=== PATIENT | female | born 1990 | race American Indian/Alaskan Native ===

== ENCOUNTER 2016-08-28 00:44 | Inpatient (IN) | payer MEDICAID, OTHER ==
[2016-08-28] MEDS ORDERED: Lidocaine 1% 30 ML SDV INJECT PRN (01:11)
[2016-08-28] MEDS ORDERED: Acetaminophen 325 MG Tab PO PRN (01:11)
[2016-08-28] MEDS ORDERED: Lactated Ringers 500 ML IV ONE (01:11)
[2016-08-28] MEDS ORDERED: Misoprostol 400 MCG (4 X 100 MCG TAB) RECTAL PRN (01:11)
[2016-08-28] MEDS ORDERED: Ondansetron 4 MG/2 ML SDV IV PRN (01:11)
[2016-08-28] MEDS ORDERED: Sodium Chloride 0.9% 10 ML Syringe FLUSH PRN (01:11)
[2016-08-28] MEDS ORDERED: Methylergonovine 0.2 MG/1 ML Amp IM PRN (01:11)
[2016-08-28] MEDS ORDERED: Carboprost Tromethamine 250 MCG/1 ML Amp IM PRN (01:11)
[2016-08-28] MEDS ORDERED: Clindamycin Phosphate 900 MG in Sodium Chloride 0.9% 100 ML IV SCH ×2 (01:51→06:00)
[2016-08-28] MEDS ORDERED: Oxytocin/Normal Saline 30 UNIT/500 ML BAG IV SCH (02:00)
[2016-08-28] MEDS: Lactated Ringers 1,000 ML IV SCH ×2 (02:01→03:06)
[2016-08-28] MEDS ORDERED: fentaNYL 100 MCG/2 ML SDV ONE (02:21)
[2016-08-28] MEDS: Clindamycin Phosphate 900 MG in Sodium Chloride 0.9% 100 ML IV SCH ×2 (02:22→06:05)
--- NOTE | 2016-08-28 02:49 | PCM.PRNOTE ---
- Free Text/Narrative Note: Patient ID'd in sitting position L3-4 inner space identified, Sterile prep with Betadine and draped, Skin wheel with 1% lidocaine. 24 G pencan spinal needle advanced into SA space via an 18 G introducer. No blood/parasthesia positive CSF, 6 mg hyperbaric Marcaine + 20 mcg sufentanyl + 30 mcg fentanyl + epinepherine wash + 1.3 ml Preservative free normal saline injected into SA space + swirl x 2. Immediate pain relief is experienced by patient, BP 109/60 , HR 81, SpO2 99 on RA, T 97.4 RR 14. Level T8 bilateral with 0 pain score reported by patient.
--- NOTE | 2016-08-28 02:54 | PCM.PREANE ---
Preanesthetic Assessment - Procedure Proposed Procedure: Term in Labor requesting spinal narcotic for labor pain - Anesthesia/Transfusion/Family Hx Anesthesia History: Prior Anesthesia Without Reaction Family History of Anesthesia Reaction: No Transfusion History: No Prior Transfusion(s) Intubation History: Unknown - Review of Systems General: No Symptoms Pulmonary: No Symptoms Cardiovascular: No Symptoms Gastrointestinal: No symptoms Neurological: No Symptoms Other: Reports: None - Physical Assessment NPO Status Date: 08/28/16 NPO Status Time: 01:00 Pulse: 80 O2 Sat by Pulse Oximetry: 99 Respiratory Rate: 16 Blood Pressure: 109/60 Temperature: 97.2 F Height: 1.63 m Weight: 57.153 kg ASA Class: 2 Mental Status: Alert & Oriented x3 Airway Class: Mallampati = 2 Dentition: Reports: Normal Dentition Thyro-Mental Finger Breadths: 3 Mouth Opening Finger Breadths: 3 ROM/Head Extension: Full Lungs: Clear to auscultation, Normal respiratory effort Cardiovascular: Regular Rate, Regular Rhythm - Lab Values: Laboratory Last Values WBC 8.4 10^3/uL (5.0-10.0) 08/28/16 01:15 RBC 3.66 10^6/uL (4.2-5.4) L 08/28/16 01:15 Hgb 8.4 g/dL (12.0-16.0) L 08/28/16 01:15 Hct 27.2 % (37.0-47.0) L 08/28/16 01:15 MCV 74.3 fL (80-100) L 08/28/16 01:15 MCH 23.0 pg (27.0-34.0) L 08/28/16 01:15 MCHC 30.9 g/dL (33.0-35.0) L 08/28/16 01:15 Plt Count 282 10^3/uL (150-450) 08/28/16 01:15 Urine Opiates Screen Negative (NEGATIVE) 08/28/16 02:00 Ur Oxycodone Screen Negative (NEGATIVE) 08/28/16 02:00 Urine Methadone Screen Negative (NEGATIVE) 08/28/16 02:00 Ur Barbiturates Screen Negative (NEGATIVE) 08/28/16 02:00 U Tricyclic Antidepress Negative (NEGATIVE) 08/28/16 02:00 Ur Phencyclidine Scrn Negative (NEGATIVE) 08/28/16 02:00 Ur Amphetamine Screen Negative (NEGATIVE) 08/28/16 02:00 U Methamphetamines Scrn Positive (NEGATIVE) H 08/28/16 02:00 Urine MDMA Screen Negative (NEGATIVE) 08/28/16 02:00 U Benzodiazepines Scrn Negative (NEGATIVE) 08/28/16 02:00 Urine Cocaine Screen Negative (NEGATIVE) 08/28/16 02:00 U Marijuana (THC) Screen Negative (NEGATIVE) 08/28/16 02:00 - Allergies Allergies/Adverse Reactions: Allergies Allergy/AdvReac Type Severity Reaction Status Date / Time cephalexin [Cephalexin] Allergy Rash Verified 12/13/14 23:16 erythromycin ethylsuccinate Allergy Rash Verified 12/13/14 23:16 [From Pediazole] Penicillins Allergy Rash Verified 12/13/14 23:16 sulfisoxazole acetyl Allergy Rash Verified 12/13/14 23:16 [From Pediazole] - Blood Blood Available: No Product(s) Available: None - Anesthesia Plan Pre-Op Medication Ordered: None - Acknowledgements Anesthesia Type Planned: Spinal Pt an Appropriate Candidate for the Planned Anesthesia: Yes Alternatives and Risks of Anesthesia Discussed w Pt/Guardian: Yes Pt/Guardian Understands and Agrees with Anesthesia Plan: Yes Additional Comments: Patient ID's chart reviewed. R/B of intrathecal narcotic is discussed with patient and accepted. Consent is signed. PreAnesthesia Questionnaire - Past Health History Medical/Surgical History: Denies Medical/Surgical History [employer] P[employer] History: Reports: , Other (See Below) Other OB/BYN History: abnormal pap smear Neurological History: Reports: Migraines Hematologic History: Reports: Anemia - Infectious Disease History Infectious Disease History: Reports: Hepatitis C - SUBSTANCE USE Smoking Status *Q: Never Smoker Second Hand Smoke Exposure: No Days Per Week of Alcohol Use: 0 Recreational Drug Use History: No Recreational Drug Type: Reports: Methamphetamine, Other (see below) Other Recreational Drug Type: positive drug screen Recreational Drug Last Use: denies - HOME MEDS Home Medications: Home Meds Clindamycin HCl 150 mg PO TID 12/13/14 [History] - CURRENT (IN HOUSE) MEDS Current Meds: Current Medications Acetaminophen (Tylenol) 650 mg PO Q4H PRN PRN Reason: Pain (Mild 1-3) and fever Carboprost Tromethamine (Hemabate Ds) 250 mcg IM ASDIRECTED PRN PRN Reason: HEMORRHAGE Lactated Ringer's (Ringers, Lactated) 1,000 mls @ 125 mls/hr IV ASDIRECTED DIVYA Last Admin: 08/28/16 02:01 Dose: 125 mls/hr Oxytocin/Sodium Chloride (Pitocin In Ns 30 Unit/500 Ml) 30 unit in 500 mls @ 500 mls/hr IV TITRATE DIVYA; 500 MUNITS/MIN PRN Reason: Protocol Clindamycin Phosphate 900 mg/ (Sodium Chloride) 106 mls @ 200 mls/hr IV Q8HR DIVYA Last Admin: 08/28/16 02:22 Dose: 200 mls/hr Lidocaine HCl (Xylocaine-Mpf 1%) 10 ml INJECT ASDIRECTED PRN PRN Reason: Perineal Repair Methylergonovine Maleate (Methergine) 0.2 mg IM ASDIRECTED PRN PRN Reason: Hemorrhage Misoprostol (Cytotec) 800 mcg RECTAL ASDIRECTED PRN PRN Reason: Hemorrhage Ondansetron HCl (Zofran) 4 mg IV Q4H PRN PRN Reason: Nausea/Vomiting Last Admin: 08/28/16 02:14 Dose: 4 mg Sodium Chloride (Saline Flush) 10 ml FLUSH ASDIRECTED PRN PRN Reason: Keep Vein Open Discontinued Medications Fentanyl (Sublimaze) Confirm Administered Dose 100 mcg .ROUTE .STK-MED ONE Stop: 08/28/16 02:22 Lactated Ringer's (Ringers, Lactated) 500 mls @ 999 mls/hr IV .BOLUS ONE Stop: 08/28/16 01:41 Last Admin: 08/28/16 00:45 Dose: 999 mls/hr Clindamycin Phosphate 900 mg/ (Sodium Chloride) 106 mls @ 200 mls/hr IV Q8HR DIVYA Clindamycin Phosphate 900 mg/ (Sodium Chloride) 106 mls @ 200 mls/hr IV Q8HR [facility] Sufentanil Citrate (Sufenta) Confirm Administered Dose 50 mcg .ROUTE .STK-MED ONE Stop: 08/28/16 02:23
--- NOTE | 2016-08-28 03:00 | HP ---
CHIEF COMPLAINT: Increased force and frequency of contractions. HISTORY OF PRESENT ILLNESS: A 26-year-old, 5, para 4-0-0-4, currently at 35 and 4/7 weeks for intrauterine based on 25 week and 3-day ultrasound performed at her first visit. The patient reports contractions started at 12:30 this morning just prior to arrival and reports that this feels different with any of her other pregnancies, feeling the pressure to have a bowel movement or start pushing, so we have called an ambulance to bring her in. Denies any leakage of fluid or vaginal bleeding. movements have been good. Concerned about risk of delivery and complications for the baby. No headaches, chest pain, shortness of breath, right upper quadrant pain, headaches, or blurry vision. No new change in her swelling. No other acute concerns reported. OBSTETRICAL HISTORY: 1. 06/12/2009 at 37 weeks, delivered a female via vacuum-assisted vaginal delivery due to heart rate decelerations, female, weight 3289 g, delivered by Dr. Freeman. 2. 06/07/2011 at 38 weeks and 3 days gestation, male infant, delivered via spontaneous vaginal delivery. weight 3884 g after 6 hours of labor, named Ricci, delivered by Dr. Freeman. 3. 04/20/2012, at 40 weeks and 0 days' gestation, female , delivered via spontaneous vaginal delivery, weighing 3430 g, name Lexi. 4. 10/14/2013, 37 weeks 2 days gestation, male via spontaneous vaginal delivery, weighing 2892 g, reported to have had dysfunctional labor, Apgars were 8 and 9. No anesthesia was used and delivered by Dr. Perez. The patient reports that all of her deliveries have been uncomplicated vaginal deliveries usually laboring for about 6 hours and delivery with only 30 minutes or less of pushing. Denies any significant complications with any of her priors. This , expecting a baby boy, blood type is O positive. Antibody screen negative. She is rubella immune. Syphilis serology was nonreactive. Hepatitis B nonreactive. HIV negative. Gonorrhea negative. Chlamydia positive on 06/18/2016 and treated, but test of cure not performed. TSH normal 1.28. Hepatitis C was reactive and a quantitative HCV was 52,800 on 07/09/2016. No genotyping was done. Wet prep was positive for clue cells. She verbally reports that her Pap smear was negative. Most recent clinic hemoglobin was 9.6 in the middle of June. Glucose tolerance test result was 99. Reports only medications are Zithromax, vitamins, and iron. The patient reports this is a planned , but is uncertain about her dates because of her irregular periods, presented when she thought she was only 11 weeks' , but 1st ultrasound showed her to be 25 weeks' gestation and fundal height at that time was 28 cm. PAST MEDICAL HISTORY: 1. Prior abnormal Pap smear in 2010 with positive HPV, most recent Pap smear negative. 2. Migraine headaches. 3. Anemia of , recurrent. 4. Chickenpox as a child. 5. Menarche at age 16 with irregular cycles every 30 days to 60 days in about 5 days of flow. 6. Tattoos and ear piercings. Denies any history of any IV drug use or blood transfusions. PAST SURGICAL HISTORY: None. FAMILY HISTORY: Mother is living. She has a history of ruptured brain aneurysm and thyroid disease. Father is living with a history of diabetes and hypertension. The patient denies any medical problems with any of her siblings or grandparents. There is specifically a negative family history for defects, multiples, cystic fibrosis, seizures, bleeding or clotting disorders, or severe anesthesia reactions. SOCIAL HISTORY: She is living in [place] with her mother and brother as well as her 4 children, all of whom she has custody of. They do not have any pets. She denies any use of tobacco, alcohol, or drugs. She is not working. Father of this baby, she does not wish to name as he is not involved and will not be supporting her in labor. She reports that he is healthy. ALLERGIES: Pediazole, which is a combination of erythromycin and sulfisoxazole. Also penicillin and cephalexin. The patient denies known allergies to clindamycin or vancomycin. MEDICATIONS: 1. Iron 325 mg twice daily. 2. vitamin once daily. REVIEW OF SYSTEMS: As per the history of present illness. Denies any nausea, vomiting, diarrhea, constipation, fever, chills, skin rash, or new neurological or musculoskeletal complaints. PHYSICAL EXAMINATION: Vital Signs: Blood pressure 94/49, pulse of 90, temperature is 99.9, and her respiratory rate of 18. HEENT: Head is normocephalic and atraumatic. Ears, eyes, and nose all unremarkable. Mouth; mucous membranes are moist. Teeth are in poor hygiene with thick calculus buildup. Neck: Supple without adenopathy. HEART: Regular without obvious murmur. Lungs: Clear to auscultation bilaterally. Abdomen: Gravid, soft, nontender. [place] shows tracing heart tones at 155 beats per minute, at baseline moderate [id number] variability with accelerations noted. [place] shows tracing contractions every 2 to 5 minutes, somewhat irregular, sometimes with coupling. Cervix: Initial exam per nurse; 5 cm, 80%, and -1. My repeat exam about an hour later is 5 to 6 cm, 100% effaced, and 0 station with bulging bag of water intact. Extremities: No edema, erythema, or tenderness noted. ASSESSMENT: 1. A 35 and 4/7th weeks gestation based on a 25-week ultrasound. 2. 5, para 4-0-0-4. 3. Late care. 4. Anemia of . 5. Second trimester chlamydia, still needs test of cure. 6. Blood type O positive. 7. Rubella immune. 8. Group B strep status unknown, collected on admission. 9. History of hepatitis C positive with a low quantitative value in the middle of June. No genotyping is known. PLAN: The patient has been admitted to the hospital with anticipation of vaginal delivery in the next few hours. She can have an intrathecal when appropriate and anticipate proceeding with artificial rupture of membranes if she does not spontaneously rupture. We would like to have her clindamycin on board prior to that. Counseled the patient about potential for complications with delivery requiring the baby to be transferred to the Intensive Care nursery. Discussed with her obtaining a urine sample for retest of gonorrhea and chlamydia because the hospital does not have any vaginal swabs for that testing available, also that I will be adding a genotype and quantitative HCV to her labs when they were drawn in the morning. Also risk of bleeding difficulties requiring transfusion because of her already low hemoglobin. Educated about low risk of vertical transmission of the HCV to the baby and the need for the baby to be tested at 18 months of age. The patient's questions have been answered. [facility] /[id number] [facility]
[2016-08-28] MEDS ORDERED: Simethicone 80 MG Tab.Chew PO PRN (04:47)
[2016-08-28] MEDS ORDERED: Benzocaine/Menthol 20%-0.5% Spray 56 GM Canister TOP PRN (04:47)
[2016-08-28] MEDS: Docusate Sodium 100 MG Cap PO PRN ×2 (05:50→22:02)
[2016-08-28] MEDS: Ibuprofen 800 MG Tab PO PRN ×2 (05:50→22:02)
[2016-08-28] MEDS: Ferrous Sulfate 325 MG Tab PO SCH ×2 (09:17→22:02)
[2016-08-28] MEDS: Prenatal Multivitamin with Calcium/Folic Acid/Iron Tab PO SCH (09:17)
--- NOTE | 2016-08-28 13:33 | PCM.POSTAN ---
POST ANESTHESIA ASSESSMENT - MENTAL STATUS Mental Status: alert, oriented - VITAL SIGNS Pulse Rate: 82 SaO2: 100 Resp Rate: 14 Blood Pressure: 112/46 Temperature: 97.2 F - RESPIRATORY Respiratory Status: respiratory rate WNL, airway patent, O2 saturation stable - CARDIOVASCULAR CV Status: pulse rate WNL, blood pressure stable - GASTROINTESTINAL GI Status: no symptoms - POST OP HYDRATION Hydration Status: adequate & stable - OBSERVATIONS Free Text/Narrative:: Patient is sitting in bed regained full function of her lower extremities and ambulated without any issue. Happy with her anesthetic plan of care.
[2016-08-29] MEDS: Docusate Sodium 100 MG Cap PO PRN ×2 (08:27→19:28)
[2016-08-29] MEDS: Ferrous Sulfate 325 MG Tab PO SCH ×2 (08:27→20:18)
[2016-08-29] MEDS: Prenatal Multivitamin with Calcium/Folic Acid/Iron Tab PO SCH (08:27)
[2016-08-29] MEDS: Ibuprofen 800 MG Tab PO PRN ×2 (08:27→19:29)
--- NOTE | 2016-08-29 08:37 | PN ---
DATE: 08/29/2016 SUBJECTIVE: Postvaginal delivery day #1, doing well. She is ambulating, tolerating regular diet. Reports bleeding has been minimal. No chest pain or shortness of breath. No dysuria. Has not yet had a bowel movement. Bottle feeding her baby. She denies any other concerns for herself. OBJECTIVE: Vital Signs: Temperature is 98.4, pulse 75, blood pressure 102/43, respiratory rate of 18, and O2 saturations 96% on room air. Heart: Regular without obvious murmur. Lungs: Clear to auscultation bilaterally. Abdomen: Soft without masses. Fundus is firm and below the umbilicus. Extremities: No edema, erythema, or tenderness noted. LABORATORY DATA: Hemoglobin is down to 8.1 from a prior 8.4. White blood cell count is stable at 8.4. ASSESSMENT: 1. Status post vaginal delivery without complications. 2. Late care. 3. Group B streptococcus status was unknown. 4. Rh status is positive. 5. Methamphetamine positive on urine drug screen. Confirmatory testing is pending. 6. Hepatitis C carrier. 7. Anemia of . 8. Dental caries. PLAN: Anticipate continued normal care and anticipate discharge home if baby is doing well. No other problems are elicited. [facility] /[id number]
[2016-08-29] MEDS ORDERED: fentaNYL 100 MCG/2 ML SDV ITHECAL ONE (14:41)
[2016-08-30 08:14] VITALS: BP 105/49
[2016-08-30] MEDS: Ferrous Sulfate 325 MG Tab PO SCH (09:24)
[2016-08-30] MEDS: Ibuprofen 800 MG Tab PO PRN (09:24)
[2016-08-30] MEDS: Docusate Sodium 100 MG Cap PO PRN (09:24)
[2016-08-30] MEDS: Prenatal Multivitamin with Calcium/Folic Acid/Iron Tab PO SCH (09:24)
--- NOTE | 2016-09-13 08:31 | DEL ---
DATE: 08/28/2016 PREPROCEDURE DIAGNOSES: 1. 5, para 4-0-0-4, at 35-4/7 weeks' gestation based on 25-week ultrasound. 2. Late and insufficient care. 3. Anemia of . 4. History of Chlamydia treated in the second trimester. 5. Hepatitis C positive. 6. Methamphetamine on urine drug screen at time of admission. 7. History of marijuana use. 8. Group B Streptococcus status unknown, blood type O positive, and rubella immune. POSTPROCEDURE DIAGNOSES: 1. 5, para 4-1-0-5, delivered at 35-4/7 weeks' gestation based on 25- week ultrasound. 2. Late and insufficient care. 3. Anemia of . 4. History of Chlamydia treated in the second trimester. 5. Hepatitis C positive. 6. Methamphetamine on urine drug screen at time of admission. 7. History of marijuana use. 8. Group B Streptococcus status unknown, blood type O positive, and rubella immune. 9. Status post spontaneous vaginal delivery under intrathecal anesthesia. BRIEF HISTORY: The patient is a 26-year-old female with the above-listed diagnoses, who presented to the hospital in active spontaneous labor which was progressing too rapidly for transfer of care to another facility. Bag of water was left intact while she was laboring and intrathecal provided for anesthesia. She was also given antibiotics for group B strep prophylaxis since her status was unknown. Amniotic fluid sac ruptured spontaneously about 10 minutes prior to delivery and delivery itself was uncomplicated. PROCEDURE DETAIL: With the patient in dorsal lithotomy position, she delivered a viable male infant over intact perineum. Infant was dried and mouth and nose were bulb suctioned due to excessive secretions and then baby held while delayed cord clamping was awaited and three-vessel umbilical cord was then doubly clamped and cut and baby taken to the warmer for further evaluation and was doing well. Placenta then delivered by gentle cord traction and concomitant uterine massage and intact. Labia and vagina were inspected and she had some superficial skin tears, but nothing that required stitches. Estimated 4 hours of stage I, 1 minute of stage II, and 4 minutes of stage III. ESTIMATED BLOOD LOSS: 300 mL. COMPLICATIONS: None. DISPOSITION: Mother and baby to stay in the room and initiate bonding at this time. He will be taken to the nursery if any concerns arise. FINDINGS: Suspect methamphetamine was cause of labor. [facility] /[id number] [facility]D
--- NOTE | 2016-09-14 00:25 | DISCH ---
ADMITTING DIAGNOSES: 1. Active labor at 35-4/7th weeks' gestation based on 25-week ultrasound. 2. 5, para 4-0-0-4. 3. Late care. 4. Anemia of . 5. Chlamydia treated in the second trimester. [id number] not yet performed. 6. Blood type O positive, rubella immune, and group B Streptococcus status unknown. 7. Hepatitis C positive, genotype unknown. 8. Positive methamphetamine on urine drug screen at admission. 9. Admission of marijuana and methamphetamine use in the . See history and physical for full details. DISCHARGE DIAGNOSES: 1. Active labor at 35-4/7th weeks' gestation based on 25-week ultrasound. 2. 5, para 4-1-0-5. 3. Late care. 4. Anemia of . 5. Chlamydia treated in the second trimester. [id number] not yet performed. 6. Blood type O positive, rubella immune, and group B Streptococcus status unknown. 7. Hepatitis C positive, genotype unknown. 8. Positive methamphetamine on urine drug screen at admission. 9. Admission of marijuana and methamphetamine use in the . See history and physical for full details. 10.Status post spontaneous vaginal delivery of without complications. 11.Chlamydia present upon admission testing and treated after discharge from the hospital. BRIEF HISTORY: A 26-year-old female with above-listed diagnoses presented to the hospital with spontaneous labor and already 5 to 6 cm dilated. She was allowed to progress naturally through labor and provided an intrathecal for pain management. Bag of water was left intact, and antibiotics were provided for group B strep prophylaxis. Spontaneous rupture occurred about 10 minutes prior to delivery of the infant, and mother and baby tolerated the procedure well. HOSPITAL COURSE: She has done well. She has been ambulating and tolerating regular diet. Bleeding has been minimal. She is voiding without difficulties. She has not yet had a bowel movement. No symptoms of preeclampsia. No symptoms of any ongoing infection. The Chlamydia was retested here in the hospital and detected, therefore treated as soon as we received results. The was taken into custody by [employer], and mother has been involved with that process as well. Baby also required a prolonged stay because of difficulties with adequate weight gain during the hospital stay. DISPOSITION: Home with family. MEDICATIONS: 1. Ibuprofen 600 mg every 6 hours as needed for pain. 2. Tylenol 650 mg every 6 hours as needed for pain. 3. Iron 325 mg twice daily. 4. Colace 100 mg twice daily. FOLLOWUP: She will need a 6-week exam here in town or out at [place]. INSTRUCTIONS: Routine postvaginal delivery instructions provided including to return if she has any difficulties with excessive vaginal bleeding, foul- smelling drainage or discharge, or development of fever, chills, or any uterine tenderness. Her questions have been answered. [facility] /[id number] [facility]
== END 2016-08-30 11:24 | disposition home or self-care (01) | DRG 775 ==
LOC: DL.OBCHECK 00:44 → DL.OB 01:05 → OBSVTOIN 04:30 → EEVIPCON 04:30
PROVIDERS: ADMIT Family Medicine; ATTEND Family Medicine
PROC: 10E0XZZ Delivery of Products of Conception, External Approach (ICD-10-PCS; principal; 2016-08-28)
PROC: 00HU33Z Insertion of Infusion Device into Spinal Canal, Percutaneous Approach (ICD-10-PCS; 2016-08-28)
PROC: 3E0R3CZ (ICD-10-PCS; 2016-08-28)
DX: O60.14X0 Preterm labor third trimester with preterm delivery third trimester, not applicable or unspecified (principal); O99.324 Drug use complicating childbirth; Z3A.36 36 weeks gestation of pregnancy; Z37.0 Single live birth; B18.2 Chronic viral hepatitis C; O99.02 Anemia complicating childbirth; Z88.8 Allergy status to other drugs, medicaments and biological substances; Z88.0 Allergy status to penicillin; Z88.1 Allergy status to other antibiotic agents
CPT/HCPCS: 36415; 80305; 85027; 87081; 87491; 87522; 87591; A9270-GY; G0480; J2405; J2590; J3010; J7050; J7120; S0077

== ENCOUNTER 2017-03-11 16:06 | Emergency (ER) | payer MEDICAID, OTHER ==
[2017-03-11 16:26] VITALS: BP 103/59
--- NOTE | 2017-03-11 16:55 | EDM.PDOC ---
ED HPI GENERAL MEDICAL PROBLEM - General Chief Complaint: Genitourinary Problem Stated Complaint: pain in chest/lower back [phone] Time Seen by Provider: 03/11/17 16:35 Source of Information: Reports: Patient History Limitations: Reports: No Limitations - History of Present Illness INITIAL COMMENTS - FREE TEXT/NARRATIVE: This 26 yo female patient reports to the ED with lower back pain, burning with urination and a cough causing pain in her chest with coughing. The patient has not been seen in the clinic and does not have a history of similar symptoms in the past. Onset Date: 03/10/17 Duration: Constant, Getting Worse Location: Reports: Chest, Abdomen, Back Quality: Reports: Ache (lower back and chest with cough), Burning (with urination) Severity: Moderate Worsens with: Reports: None Associated Symptoms: Reports: Cough Bilateral Flank Pain Score (Numeric/FACES): 10 - Related Data Allergies Allergy/AdvReac Type Severity Reaction Status Date / Time cephalexin [Cephalexin] Allergy Rash Verified 03/11/17 16:12 erythromycin ethylsuccinate Allergy Rash Verified 03/11/17 16:12 [From Pediazole] Penicillins Allergy Rash Verified 03/11/17 16:12 sulfisoxazole acetyl Allergy Rash Verified 03/11/17 16:12 [From Pediazole] Home Meds: Home Meds . 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: , Other (See Below) Other OB/BYN History: abnormal pap smear Neurological History: Reports: Migraines Hematologic History: Reports: Anemia - Infectious Disease History Infectious Disease History: Reports: Hepatitis C Social & Family History - Family History Family Medical History: Noncontributory - Tobacco Use Smoking Status *Q: Never Smoker Years of Tobacco use: 1 Used Tobacco, but Quit: No Month Tobacco Last Used: 06 Second Hand Smoke Exposure: No - Caffeine Use Caffeine Use: Reports: Tea - Alcohol Use Days Per Week of Alcohol Use: 0 - Recreational Drug Use Recreational Drug Use: Yes Drug Use in Last 12 Months: Yes Recreational Drug Type: Reports: Methamphetamine, Other (see below) Other Recreational Drug Type: denies use Recreational Drug Last Use: denies ED ROS GENERAL - Review of Systems Review Of Systems: ROS reveals no pertinent complaints other than HPI. ED EXAM, RENAL/ - Physical Exam Exam: See Below Exam Limited By: No Limitations General Appearance: Alert, WD/WN, Moderate Distress Eye Exam: Bilateral Eye: EOMI, Normal Inspection, PERRL Ears: Normal External Exam, Normal Canal, Hearing Grossly Normal, Normal TMs Nose: Normal Inspection, Normal Mucosa, No Blood Throat/Mouth: Normal Inspection, Normal Lips, Normal Teeth, Normal Gums, Normal Oropharynx, Normal Voice, No Airway Compromise, Inflammation Neck: Normal Inspection, Supple, Non-Tender, Full Range of Motion Respiratory/Chest: No Respiratory Distress Cardiovascular: Normal Peripheral Pulses, Regular Rate, Rhythm, No Edema, No Gallop, No JVD, No Murmur, No Rub GI/Abdominal: Normal Bowel Sounds, Soft, Tender (lower abdomen) (Female) Exam: Deferred Rectal (Female) Exam: Deferred Back Exam: CVA Tenderness (L), CVA Tenderness (R) Extremities: Normal Inspection, Normal Range of Motion, Non-Tender, Normal Capillary Refill, No Pedal Edema Neurological: Alert, Oriented, CN II-XII Intact, Normal Cognition, Normal Gait, Normal Reflexes, No Motor/Sensory Deficits Psychiatric: Normal Affect, Normal Mood Skin Exam: Warm, Dry, Intact, Normal Color, No Rash Lymphatic: No Adenopathy Course - Vital Signs Last Recorded V/S: Last Vital Signs Temp 36.2 C 03/11/17 16:13 Pulse 104 H 03/11/17 16:13 Resp 18 03/11/17 16:13 BP 103/59 L 03/11/17 16:13 Pulse Ox 100 03/11/17 16:13 - Orders/Labs/Meds Orders: Active Orders 24 hr Category Date Time Status COMPREHENSIVE METABOLIC PN,CMP [CHEM] Urgent Lab 03/11/17 17:00 Received Labs: Laboratory Tests 03/11/17 03/11/17 Range/Units 16:16 17:00 WBC 6.7 (5.0-10.0) 10^3/uL RBC 5.22 (4.2-5.4) 10^6/uL Hgb 11.6 L D (12.0-16.0) g/dL Hct 36.7 L (37.0-47.0) % MCV 70.3 L D (80-100) fL MCH 22.2 L (27.0-34.0) pg MCHC 31.6 L (33.0-35.0) g/dL Plt Count 324 D (150-450) 10^3/uL Neut % (Auto) 69.2 (42.2-75.2) % Lymph % (Auto) 23.7 (20.5-50.1) % [place] % (Auto) 7.0 (2-8) % Eos % (Auto) 0.0 L (1.0-3.0) % Baso % (Auto) 0.1 (0.0-1.0) % Urine Color Red (YELLOW) Urine Appearance Turbid (CLEAR) Urine pH 6.0 (5.0-9.0) Ur Specific [place] >= 1.030 (1.005-1.030) Urine Protein 100 H (NEGATIVE) Urine Glucose (UA) Negative (NEGATIVE) Urine Ketones Trace H (NEGATIVE) Urine Occult Blood Large H (NEGATIVE) Urine Nitrite Negative (NEGATIVE) Urine Bilirubin Small H (NEGATIVE) Urine Urobilinogen 2.0 H (0.2-1.0) mg/dL Ur Leukocyte Esterase Trace H (NEGATIVE) Urine RBC >100 H /HPF Urine WBC 5-10 H (0-5/HPF) /HPF Ur Epithelial Cells Rare /HPF Urine Bacteria Rare (0-FEW/HPF) /HPF Urine Mucus Rare /LPF Departure - Departure Time of Disposition: 17:24 Disposition: Home, Self-Care 01 Condition: Fair Clinical Impression: UTI, Urinary tract infectious disease, Bronchitis - Discharge Information Instructions: Urinary Tract Infection, Adult, [id number], Acute Bronchitis, [id number] Forms: ED Department Discharge Care Plan Goals: The patient was advised of the examination and lab results during the visit. The patient was given a script for Levaquin (750 mg) to take 1 by mouth daily for 5 days and Pyridium (200 mg) #6 to take 1 by mouth 3 times per day for 2 days. If the patient has any additional symptoms or concerns, the patient should follow-up with her primary care facility or return to the emergency department. - My Orders Last 24 Hours: My Active Orders 03/11/17 17:00 COMPREHENSIVE METABOLIC PN,CMP [CHEM] Urgent - Assessment/Plan Last 24 Hours: My Active Orders 03/11/17 17:00 COMPREHENSIVE METABOLIC PN,CMP [CHEM] Urgent
[2017-03-11 17:33] LABS: CHLORIDE,CL 99 mmol/L (101-111); SODIUM,NA 136 mmol/L (135-145)
== END 2017-03-11 17:43 | disposition home or self-care (01) ==
LOC: DL.ED 16:06
DX: N39.0 Urinary tract infection, site not specified (principal); J40 Bronchitis, not specified as acute or chronic; Z88.0 Allergy status to penicillin; Z88.1 Allergy status to other antibiotic agents; Z88.8 Allergy status to other drugs, medicaments and biological substances
CPT/HCPCS: 36415; 80053; 81001; 85025; 99284

== ENCOUNTER 2017-11-06 16:02 | Emergency (ER) | payer MEDICAID ==
[2017-11-06 16:09] VITALS: BP 85/42
[2017-11-06] MEDS ORDERED: Sodium Chloride 0.9% 10 ML Syringe FLUSH PRN ×2 (16:14→17:38)
[2017-11-06] MEDS ORDERED: Acetaminophen 325 MG Tab PO ONE (16:15)
[2017-11-06] MEDS ORDERED: Ondansetron 4 MG/2 ML SDV IV ONE (16:15)
[2017-11-06] MEDS ORDERED: Sodium Chloride 0.9% 1,000 ML IV ONE ×2 (16:15→17:38)
[2017-11-06 16:54] LABS: CHLORIDE,CL 101 mmol/L (101-111); SODIUM,NA 136 mmol/L (135-145)
[2017-11-06] MEDS ORDERED: Clindamycin Phosphate 900 MG in Sodium Chloride 0.9% 100 ML IV ONE (17:37)
--- NOTE | 2017-11-06 17:49 | EDM.PDOC ---
Scribed by Ladi Hills 11/06/17 [id number] for García Rock MD ED HPI GENERAL MEDICAL PROBLEM - General Chief Complaint: General Stated Complaint: [phone] RIGHT SIDE PAIN Time Seen by Provider: 11/06/17 16:07 Source of Information: Reports: Patient, RN, RN Notes Reviewed History Limitations: Reports: No Limitations - History of Present Illness INITIAL COMMENTS - FREE TEXT/NARRATIVE: Patient presents to ER with complaint of being sick since last Saturday with right sided abdominal pain, fever, chills, nausea and a couple episodes of emesis. The pain is localized mostly to the right upper quadrant. Occasionally the pain radiates to the right flank and right mid back. Denies sore throat, cough, or urinary symptoms. Patient states she does not think she is . Last period was around September 13. Patient has history of methamphetamine use but states she has not used recently. Onset: Gradual Duration: Getting Worse Location: Reports: Abdomen Quality: Reports: Ache Severity: Severe Improves with: Reports: None Worsens with: Reports: None Associated Symptoms: Reports: No Other Symptoms Right Hand Pain Score (Numeric/FACES): 10 - Related Data Allergies Allergy/AdvReac Type Severity Reaction Status Date / Time cephalexin [Cephalexin] Allergy Rash Verified 03/11/17 16:12 erythromycin ethylsuccinate Allergy Rash Verified 03/11/17 16:12 [From Pediazole] Penicillins Allergy Rash Verified 03/11/17 16:12 sulfisoxazole acetyl Allergy Rash Verified 03/11/17 16:12 [From Pediazole] Home Meds: Home Meds . 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 History: abnormal pap smear Neurological History: Reports: Migraines Hematologic History: Reports: Anemia - Infectious Disease History Infectious Disease History: Reports: Hepatitis C Social & Family History - Family History Family Medical History: Noncontributory - Tobacco Use Smoking Status *Q: Current Some Day Smoker - Caffeine Use Caffeine Use: Reports: Tea - Alcohol Use Alcohol Use History: No - Recreational Drug Use Recreational Drug Use: Yes Recreational Drug Type: Reports: Methamphetamine Recreational Drug Use Frequency: Patient Refuses To Answer - Sexual History Sexual History: Reports: Sexually Active - Living Situation & Occupation Living situation: Reports: with Family ED ROS GENERAL - Review of Systems Review Of Systems: ROS reveals no pertinent complaints other than HPI. ED EXAM, GENERAL - Physical Exam Exam: See Below Exam Limited By: No Limitations General Appearance: Alert, Other (acutely ill appearing) Eye Exam: Bilateral Eye: Normal Inspection Ears: Normal External Exam, Normal Canal, Hearing Grossly Normal, Normal TMs Nose: Normal Inspection, Normal Mucosa, No Blood Throat/Mouth: Normal Lips, Normal Oropharynx, Normal Voice, No Airway Compromise , Other (very dry oral membranes) Head: Atraumatic, Normocephalic Neck: Normal Inspection, Supple, Non-Tender, Full Range of Motion, Other (no nuchal rigidity). No: Lymphadenopathy (L), Lymphadenopathy (R) Respiratory/Chest: No Respiratory Distress, Lungs Clear, No Accessory Muscle Use , Chest Non-Tender, Decreased Breath Sounds. No: Rales, Rhonchi, Wheezing Cardiovascular: Regular Rate, Rhythm, No Edema, Tachycardia GI/Abdominal: Normal Bowel Sounds, Soft, No Distention, No Abnormal Bruit, No Mass, Pelvis Stable, Tender (right upper quadrant), Other (no peritoneal signs) . No: Guarding, Rigid, Rebound (Female) Exam: Deferred Rectal (Female) Exam: Deferred Back Exam: Full Range of Motion, CVA Tenderness (R). No: CVA Tenderness (L) Extremities: Normal Inspection, Normal Range of Motion, Non-Tender, Normal Capillary Refill, No Pedal Edema Neurological: Alert, Oriented, CN II-XII Intact, Normal Cognition, Normal Gait, No Motor/Sensory Deficits Psychiatric: Anxious Skin Exam: Warm, Dry, Intact, Normal Color, No Rash Course - Vital Signs Last Recorded V/S: Last Vital Signs Temp 39.8 C H 11/06/17 17:19 Pulse 126 H 11/06/17 16:07 Resp 17 11/06/17 16:07 BP 85/42 L 11/06/17 16:07 Pulse Ox 96 11/06/17 16:07 - Orders/Labs/Meds Orders: Active Orders 24 hr Category Date Time Status Peripheral IV Care [RC] . DIRECTED Care 11/06/17 16:15 Active Peripheral IV Care [RC] . DIRECTED Care 11/06/17 17:38 Active CHLAMYDIA AND GONORRHEA BY TMA Routine Lab 11/06/17 16:15 Received CULTURE BLOOD [BC] Stat Lab 11/06/17 16:20 Received CULTURE BLOOD [BC] Stat Lab 11/06/17 16:25 Received CULTURE URINE [RM] Stat Lab 11/06/17 16:15 Received HCG QUANTITATIVE,SERUM [CHEM] Stat Lab 11/06/17 16:25 Received Clindamycin Phosphate [Cleocin] 900 mg Med 11/06/17 17:37 Active Sodium Chloride 0.9% [Normal Saline] 100 ml IV ONETIME Sodium Chloride 0.9% [Normal Saline] 1,000 ml Med 11/06/17 17:38 Active IV .BOLUS Sodium Chloride 0.9% [Saline Flush] Med 11/06/17 16:14 Active 10 ml FLUSH ASDIRECTED PRN Sodium Chloride 0.9% [Saline Flush] Med 11/06/17 17:38 Active 10 ml FLUSH ASDIRECTED PRN Blood Culture x2 Reflex Set [OM.PC] Stat Oth 11/06/17 16:14 Ordered Peripheral IV Insertion Adult [OM.PC] Stat Oth 11/06/17 16:14 Ordered Peripheral IV Insertion Adult [OM.PC] Stat Oth 11/06/17 17:38 Ordered Medication Orders Clindamycin Phosphate 900 mg/ (Sodium Chloride) 106 mls @ 200 mls/hr IV ONETIME ONE Stop: 11/06/17 18:08 Sodium Chloride (Normal Saline) 1,000 mls @ 999 mls/hr IV .BOLUS ONE Stop: 11/06/17 18:38 Sodium Chloride (Saline Flush) 10 ml FLUSH ASDIRECTED PRN PRN Reason: Keep Vein Open Last Admin: 11/06/17 16:31 Dose: 10 ml Sodium Chloride (Saline Flush) 10 ml FLUSH ASDIRECTED PRN PRN Reason: Keep Vein Open Labs: Laboratory Tests 11/06/17 11/06/17 11/06/17 Range/Units 16:15 16:25 16:25 WBC 18.9 H (5.0-10.0) 10^3/uL RBC 3.66 L (4.2-5.4) 10^6/uL Hgb 9.2 L D (12.0-16.0) g/dL Hct 28.7 L (37.0-47.0) % MCV 78.4 L D (80-100) fL MCH 25.1 L (27.0-34.0) pg MCHC 32.1 L (33.0-35.0) g/dL Plt Count 598 H D (150-450) 10^3/uL Neut % (Auto) 88.2 H (42.2-75.2) % Lymph % (Auto) 6.2 L (20.5-50.1) % [place] % (Auto) 5.1 (2-8) % Eos % (Auto) 0.4 L (1.0-3.0) % Baso % (Auto) 0.1 (0.0-1.0) % Add Manual Diff Yes Neutrophils % (Manual) 88 H (42-75) % Lymphocytes % (Manual) 7 L (20-50) % Monocytes % (Manual) 4 (2-8) % Eosinophils % (Manual) 1 (1-3) % Sodium 136 (135-145) mmol/L Potassium 4.0 (3.6-5.0) mmol/L Chloride 101 (101-111) mmol/L Carbon Dioxide 27.0 (21.0-31.0) mmol/L Anion Gap 12.0 BUN 6 L (7-18) mg/dL Creatinine 0.8 (0.6-1.3) mg/dL Est Cr Clr Drug Dosing 88.93 mL/min Estimated GFR (MDRD) > 60 BUN/Creatinine Ratio 7.50 Glucose 96 (74-105) mg/dL Lactic Acid (0.5-2.2) mmol/L Calcium 8.5 (8.4-10.2) mg/dl Total Bilirubin 0.3 (0.2-1.0) mg/dL AST 20 (10-42) IU/L ALT 8 L (10-60) IU/L Alkaline Phosphatase 98 (42-121) IU/L Total Protein 7.8 (6.7-8.2) g/dl Albumin 2.5 L (3.2-5.5) g/dl Globulin 5.3 Albumin/Globulin Ratio 0.47 Amylase 21 L (28-100) U/L Lipase 12 L (22-51) U/L Urine Color Yellow (YELLOW) Urine Appearance Cloudy (CLEAR) Urine pH 8.5 (5.0-9.0) Ur Specific [place] 1.020 (1.005-1.030) Urine Protein 30 H (NEGATIVE) Urine Glucose (UA) Negative (NEGATIVE) Urine Ketones Negative (NEGATIVE) Urine Occult Blood Moderate H (NEGATIVE) Urine Nitrite Positive H (NEGATIVE) Urine Bilirubin Negative (NEGATIVE) Urine Urobilinogen 1.0 (0.2-1.0) mg/dL Ur Leukocyte Esterase Small H (NEGATIVE) Urine RBC 50-75 H /HPF Urine WBC 30-40 H (0-5/HPF) /HPF Ur Epithelial Cells Moderate H /HPF Urine Bacteria Many H (0-FEW/HPF) /HPF Urine Mucus Few H /LPF Urine HCG, Qual Urine Opiates Screen (NEGATIVE) Ur Oxycodone Screen (NEGATIVE) Urine Methadone Screen (NEGATIVE) Ur Barbiturates Screen (NEGATIVE) U Tricyclic Antidepress (NEGATIVE) Ur Phencyclidine Scrn (NEGATIVE) Ur Amphetamine Screen (NEGATIVE) U Methamphetamines Scrn (NEGATIVE) Urine MDMA Screen (NEGATIVE) U Benzodiazepines Scrn (NEGATIVE) Urine Cocaine Screen (NEGATIVE) U Marijuana (THC) Screen (NEGATIVE) 11/06/17 11/06/17 11/06/17 Range/Units 16:25 16:30 16:30 WBC (5.0-10.0) 10^3/uL RBC (4.2-5.4) 10^6/uL Hgb (12.0-16.0) g/dL Hct (37.0-47.0) % MCV (80-100) fL MCH (27.0-34.0) pg MCHC (33.0-35.0) g/dL Plt Count (150-450) 10^3/uL Neut % (Auto) (42.2-75.2) % Lymph % (Auto) (20.5-50.1) % [place] % (Auto) (2-8) % Eos % (Auto) (1.0-3.0) % Baso % (Auto) (0.0-1.0) % Add Manual Diff Neutrophils % (Manual) (42-75) % Lymphocytes % (Manual) (20-50) % Monocytes % (Manual) (2-8) % Eosinophils % (Manual) (1-3) % Sodium (135-145) mmol/L Potassium (3.6-5.0) mmol/L Chloride (101-111) mmol/L Carbon Dioxide (21.0-31.0) mmol/L Anion Gap BUN (7-18) mg/dL Creatinine (0.6-1.3) mg/dL Est Cr Clr Drug Dosing mL/min Estimated GFR (MDRD) BUN/Creatinine Ratio Glucose (74-105) mg/dL Lactic Acid 1.9 (0.5-2.2) mmol/L Calcium (8.4-10.2) mg/dl Total Bilirubin (0.2-1.0) mg/dL AST (10-42) IU/L ALT (10-60) IU/L Alkaline Phosphatase (42-121) IU/L Total Protein (6.7-8.2) g/dl Albumin (3.2-5.5) g/dl Globulin Albumin/Globulin Ratio Amylase (28-100) U/L Lipase (22-51) U/L Urine Color (YELLOW) Urine Appearance (CLEAR) Urine pH (5.0-9.0) Ur Specific [place] (1.005-1.030) Urine Protein (NEGATIVE) Urine Glucose (UA) (NEGATIVE) Urine Ketones (NEGATIVE) Urine Occult Blood (NEGATIVE) Urine Nitrite (NEGATIVE) Urine Bilirubin (NEGATIVE) Urine Urobilinogen (0.2-1.0) mg/dL Ur Leukocyte Esterase (NEGATIVE) Urine RBC /HPF Urine WBC (0-5/HPF) /HPF Ur Epithelial Cells /HPF Urine Bacteria (0-FEW/HPF) /HPF Urine Mucus /LPF Urine HCG, Qual Positive Urine Opiates Screen Negative (NEGATIVE) Ur Oxycodone Screen Negative (NEGATIVE) Urine Methadone Screen Negative (NEGATIVE) Ur Barbiturates Screen Negative (NEGATIVE) U Tricyclic Antidepress Negative (NEGATIVE) Ur Phencyclidine Scrn Negative (NEGATIVE) Ur Amphetamine Screen Negative (NEGATIVE) U Methamphetamines Scrn Positive H (NEGATIVE) Urine MDMA Screen Negative (NEGATIVE) U Benzodiazepines Scrn Negative (NEGATIVE) Urine Cocaine Screen Negative (NEGATIVE) U Marijuana (THC) Screen Negative (NEGATIVE) Meds: Medications Generic Name Dose Route Start Last Admin Trade Name Freq PRN Reason Stop Dose Admin Clindamycin Phosphate 900 mg/ 106 mls @ 200 mls/hr 11/06/17 17:37 Sodium Chloride IV 11/06/17 18:08 ONETIME ONE Sodium Chloride 1,000 mls @ 999 mls/hr 11/06/17 17:38 Normal Saline IV 11/06/17 18:38 .BOLUS ONE Sodium Chloride 10 ml 11/06/17 16:14 11/06/17 16:31 Saline Flush FLUSH 10 ml ASDIRECTED PRN Administration Keep Vein Open Sodium Chloride 10 ml 11/06/17 17:38 Saline Flush FLUSH ASDIRECTED PRN Keep Vein Open Discontinued Medications Generic Name Dose Route Start Last Admin Trade Name Freq PRN Reason Stop Dose Admin Acetaminophen 975 mg 11/06/17 16:15 11/06/17 16:32 Tylenol PO 11/06/17 16:16 975 mg NOW ONE Administration Sodium Chloride 1,000 mls @ 999 mls/hr 11/06/17 16:15 11/06/17 16:31 Normal Saline IV 11/06/17 17:15 999 mls/hr .BOLUS ONE Administration Ondansetron HCl 4 mg 11/06/17 16:15 11/06/17 16:33 Zofran IV 11/06/17 16:16 4 mg ONETIME ONE Administration - Re-Assessments/Exams Free Text/Narrative Re-Assessment/Exam: 11/06/17 17:46 Pt with positive test, RUQ abd. pain, fever, and sepsis, needing US for r/o GB, pyelo. w/kidney abscess, or preg./PID vs other source of infection. No US available here. Pt with multiple antibiotic allergies. Empiric tx with Clindamycin 900mg IV, IVF resuscitation with NS and transfer to [facility] ER with Dr. Benavides accepting pt. Departure - Departure Time of Disposition: 17:17 Disposition: DC/Tfer to Acute Hospital 02 Condition: Serious Clinical Impression: Abdominal pain Qualifiers: Abdominal location: right upper quadrant Qualified Code(s): R10.11 - Right upper quadrant pain Sepsis Qualifiers: Sepsis type: sepsis due to unspecified organism Qualified Code(s): A41.9 - Sepsis, unspecified organism Qualifiers: Weeks of gestation: unspecified Qualified Code(s): Z34.90 - Encounter for supervision of normal , unspecified, unspecified trimester - Discharge Information Forms: Interfacility Transfer EMTALA, ED Department Discharge - My Orders Last 24 Hours: My Active Orders 11/06/17 16:14 Sodium Chloride 0.9% [Saline Flush] 10 ml FLUSH ASDIRECTED PRN Blood Culture x2 Reflex Set [OM.PC] Stat Peripheral IV Insertion Adult [OM.PC] Stat 11/06/17 16:15 Peripheral IV Care [RC] . DIRECTED CHLAMYDIA AND GONORRHEA BY TMA Routine CULTURE URINE [RM] Stat 11/06/17 16:20 CULTURE BLOOD [BC] Stat 11/06/17 16:25 CULTURE BLOOD [BC] Stat HCG QUANTITATIVE,SERUM [CHEM] Stat 11/06/17 17:37 Clindamycin Phosphate [Cleocin] 900 mg Sodium Chloride 0.9% [Normal Saline] 100 ml IV ONETIME 11/06/17 17:38 Peripheral IV Care [RC] . DIRECTED Sodium Chloride 0.9% [Normal Saline] 1,000 ml IV .BOLUS Sodium Chloride 0.9% [Saline Flush] 10 ml FLUSH ASDIRECTED PRN Peripheral IV Insertion Adult [OM.PC] Stat - Assessment/Plan Last 24 Hours: My Active Orders 11/06/17 16:14 Sodium Chloride 0.9% [Saline Flush] 10 ml FLUSH ASDIRECTED PRN Blood Culture x2 Reflex Set [OM.PC] Stat Peripheral IV Insertion Adult [OM.PC] Stat 11/06/17 16:15 Peripheral IV Care [RC] . DIRECTED CHLAMYDIA AND GONORRHEA BY TMA Routine CULTURE URINE [RM] Stat 11/06/17 16:20 CULTURE BLOOD [BC] Stat 11/06/17 16:25 CULTURE BLOOD [BC] Stat HCG QUANTITATIVE,SERUM [CHEM] Stat 11/06/17 17:37 Clindamycin Phosphate [Cleocin] 900 mg Sodium Chloride 0.9% [Normal Saline] 100 ml IV ONETIME 11/06/17 17:38 Peripheral IV Care [RC] . DIRECTED Sodium Chloride 0.9% [Normal Saline] 1,000 ml IV .BOLUS Sodium Chloride 0.9% [Saline Flush] 10 ml FLUSH ASDIRECTED PRN Peripheral IV Insertion Adult [OM.PC] Stat I have read and agree with the documentation that has been completed regarding this visit. By signing this record, I attest that the documentation was completed in my physical presence and is an accurate record of the encounter.
== END 2017-11-06 18:00 ==
LOC: DL.ED 16:02
DX: A41.9 Sepsis, unspecified organism (principal); R10.11 Right upper quadrant pain; Z33.1 Pregnant state, incidental; Z88.1 Allergy status to other antibiotic agents; Z88.0 Allergy status to penicillin; Z88.2 Allergy status to sulfonamides; F17.200 Nicotine dependence, unspecified, uncomplicated
CPT/HCPCS: 36415; 80053; 80305; 81001; 81025; 82150; 83605; 83690; 84702; 85025; 87040; 87086; 87186; 87491; 87591; 96361; 96374; 96375; 99284; A9270; J2405; J3490; J7030; J7050

== ENCOUNTER 2018-03-17 03:24 | Inpatient (IN) | payer MEDICAID ==
[2018-03-17] MEDS ORDERED: Silver Nitrate Applicator Each ONE (03:26)
[2018-03-17] MEDS ORDERED: Ferric Subsulfate Topical Soln 8 GM (8 ML) Bottle ONE (03:26)
[2018-03-17] MEDS ORDERED: Oxytocin/Normal Saline 0 UNIT/0 ML BAG ONE (03:26)
[2018-03-17] MEDS ORDERED: Lactated Ringers 1,000 ML IV SCH (03:30)
[2018-03-17] MEDS ORDERED: Tranexamic Acid 1,000 MG in Sodium Chloride 0.9% 100 ML IV PRN (04:00)
[2018-03-17] MEDS ORDERED: Carboprost Tromethamine 250 MCG/1 ML Amp IM PRN (04:00)
[2018-03-17] MEDS ORDERED: Benzocaine/Menthol 20%-0.5% Spray 56 GM Canister TOP PRN (04:00)
[2018-03-17] MEDS ORDERED: Misoprostol 400 MCG (4 X 100 MCG TAB) RECTAL PRN (04:00)
[2018-03-17] MEDS ORDERED: Sodium Chloride 0.9% 10 ML Syringe FLUSH PRN (04:00)
[2018-03-17] MEDS ORDERED: Measles, Mumps & Rubella Vaccine 0.5 ML SDV SUBCUT ONE (04:00)
[2018-03-17] MEDS ORDERED: Oxytocin 10 Units/1 ML SDV IM PRN (04:00)
[2018-03-17 04:04] LABS: ANION GAP 12.8; CHLORIDE,CL 103 mmol/L (101-111); SODIUM,NA 131 mmol/L (135-145)
[2018-03-17] MEDS ORDERED: Oxytocin/Normal Saline 30 UNIT/500 ML BAG IV SCH (04:30)
[2018-03-17] MEDS: Ibuprofen 800 MG Tab PO PRN ×3 (04:37→21:09)
[2018-03-17] MEDS: Acetaminophen 325 MG Tab PO PRN ×3 (05:36→22:28)
--- NOTE | 2018-03-17 08:33 | HP ---
HISTORY AND PHYSICAL WELL ER MANAGEMENT: HISTORY OF PRESENT ILLNESS: Kiya Linda is a 27-year-old, G6, P4-1-0-5, now G6, P5-1-0-5 intrauterine at 39 weeks by 20 and 2/7 weeks' ultrasound who had a precipitous spontaneous delivery at home. Followed by in and out of consciousness, ambulance transport to the emergency room. The patient states that she delivered at home at approximately 2:04 a.m. after having an urge to push with labor approximately 15 minutes prior. She notes her bag of water broke when she started pushing, and her mother delivered the baby at home. Ambulance presents with the patient and the baby, notes that the cords are clamped and cut, and placenta has not delivered. The patient was noted to be going in and out of consciousness during initial evaluation and management by the ambulance crew and brought immediately to the emergency room. I, Dr. Freeman, was called to the ER as well as called in Dr. Arguello for support as well as OR crew, anesthesia, and ultrasound along with OB nurses for the patient to be evaluated and managed in the ER. Upon arrival into the emergency room via ambulance at approximately 3:25 a.m., the patient and her baby were brought into the trauma room. Please see objective information as below. Records were called for, reviewed as below, and supplemented by the patient's history. OBSTETRICAL HISTORY: 1. On 08/28/2016, 35 and 4/7 weeks, delivered a male, spontaneous vaginal delivery, weighing 2960 g. 2. On 10/14/2013, 37 and 2/7 weeks, delivered a male, spontaneous vaginal delivery, weighing 2892 g. 3. On 04/20/2012, 40 weeks, delivered a female, spontaneous vaginal delivery, weighing 3430 g. 4. On 06/07/2011, 38 and 3/7 weeks, delivered a male, spontaneous vaginal delivery, 3884 g. 5. At 37 weeks, delivered a female on 06/12/2009, vacuum-assisted vaginal delivery, weighing 3289 g. Her 2017 was complicated with methamphetamine on urine drug screen. Chlamydia present. Treated at discharge. GBS unknown with HCV viral load of 142,318. ANTEPARTUM LABORATORY DATA: ABO blood type O positive. Negative antibody. Rubella nonimmune. Negative Syphilis antibodies. Negative hep B, HIV, and initial Chlamydia positive and treated on 11/07/2017 and negative on 01/07/2018 with gonorrhea being negative on 01/07/2018. One-hour GTT on 01/07/2018 was 96 with hemoglobin 11.2 and platelets 355. Hemoglobin on 11/09/17 was 8.5. GBS is unknown. ALLERGIES: Amoxicillin and Pediazole are listed. Other chart reveals clavulanic acid and Keflex. PAST MEDICAL/PAST SURGICAL HISTORY: Remarkable for OB history as above. Abnormal Pap smear of the cervix with positive HPV in 2010. Maternal anemia. Negative for any abdominal-type surgery. SOCIAL HISTORY: The patient has been incarcerated during this . This was noted back in November and December, and this was for methamphetamine. She lives in [place] with her mother, brother, and other grandmother of the children have the patient's other children. She denies any alcohol or tobacco use but does describe using methamphetamine approximately 2 hours prior to delivery. FAMILY HISTORY: Mother with ruptured aneurysm. Father with diabetes and hypertension. Mother with thyroid disease. Negative family history of cancer, defects, anesthesia problems, or bleeding problems. REVIEW OF SYSTEMS: Reviewed only notable for some abdominal pain and cramping with vaginal bleeding and leaking as noted as above. Otherwise reviewed quickly and fully and felt to be noncontributory. OBJECTIVE AND EMERGENCY ROOM COURSE: General: The patient was immediately wheeled into the trauma room. On initial evaluation, the patient was speaking without difficulty. Answered questions appropriately. HEENT: Head is atraumatic. EOMs grossly intact. No scleral icterus. No obvious otorhinorrhea. Mucous membranes moist. Neck: No obvious tenderness. Lungs: Clear to auscultation bilaterally. No increased work of breathing. Heart: S1, S2. Regular rate and rhythm. Monitors were applied revealing a normal sinus rhythm with heart rate between 90s and 100s initially. Abdomen: Firm uterus, -3 below the umbilicus. Otherwise, no other organomegaly, pulsatile masses, or hernias. No rebound, rigidity, or guarding. Extremities: No peripheral edema. Deep tendon reflexes 2/4 bilaterally and symmetric in the lower extremities. Psychiatric: Mood and affect are congruent. Judgment and insight intact. Skin: Without cyanosis, clubbing, or jaundice. Genitourinary: Clamped umbilical cord is noted coming from the vaginal orifice, this was a plastic clamp. Subsequently gentle cord traction with fundal massage was done and placenta delivered. This was subsequently examined and felt to be intact. Thereafter, fundal massage ensued as well as Pitocin started per protocol. Minimal bleeding was noted, and the estimated blood loss in the ER was approximately 150 mL. Further ER evaluation, stat CBC was called for, white cell count 18.21, hemoglobin 11.7, platelets 427. BMP revealed sodium 131, bicarb 19, creatinine 0.5, and calcium 8.3. Urine drug screen is pending. Type and screen was also done as per the initial evaluation. Vitals initially upon arrival into the trauma room: Heart rate 102, O2 sats in the 90s, blood pressure 123/65, respiratory rate is between 16 and 23. As part of the ER evaluation, the patient was continually monitored. Fundal massage was ensued. Bleeding was followed closely. There was noted to be a small first-degree perineal laceration, nonbleeding, nonrepaired after discussion with the patient. ASSESSMENT: 1. Intrauterine at 39 weeks by 20 and 2/7 weeks' ultrasound. 2. Precipitous spontaneous vaginal delivery at home at approximately 2:04 a.m. per the patient report. 3. Placental delivery in the emergency room as above. 4. Limited care. 5. Group B Streptococcus unknown. 6. Admitted methamphetamine use approximately 2 hours prior to delivery and urine drug screen in the past had been positive for methamphetamine. 7. Positive Chlamydia in 10/2012, treated and negative on 01/07/2018 initially and recently just rechecked but not available a few days ago. 8. Trichomoniasis positive on 01/07/2018 and 03/14/2018 with treatment done on 03/14/2018. 9. Hepatitis C antibody positive. 10. 6, para 4-1-0-5, now 6, para 5-1-0-6. PLAN: As the patient was stable and felt stable to leave the ER, she was subsequently brought over to the OB floor, and we will continue to follow clinically and closely. Urine drug screen will be drawn also as well as following for CBC tomorrow morning and following -type protocol. I, Dr. Freeman was called in for this patient as she was brought in by ambulance, arrived at the ER at 3:00 a.m. The patient arrived at 3:25 a.m. and we left the ER room approximately 3:55 a.m. Sponge, lap, and needle counts were correct from an OB/delivery tray for evaluation and management of the patient. Please see nurse's notes for further details as well. [facility] /[id number]
[2018-03-17] MEDS: Prenatal Multivitamin with Calcium/Folic Acid/Iron Tab PO SCH (09:20)
[2018-03-17] MEDS: Docusate Sodium 100 MG Cap PO PRN ×2 (09:20→21:10)
[2018-03-17] MEDS: Simethicone 80 MG Tab.Chew PO PRN (21:10)
[2018-03-17] MEDS: Zolpidem 5 MG Tab PO PRN (22:28)
[2018-03-18 06:59] LABS: ANION GAP 12.4; CHLORIDE,CL 104 mmol/L (101-111); SODIUM,NA 135 mmol/L (135-145)
[2018-03-18] MEDS: Docusate Sodium 100 MG Cap PO PRN ×2 (09:44→21:33)
[2018-03-18] MEDS: Prenatal Multivitamin with Calcium/Folic Acid/Iron Tab PO SCH (09:44)
[2018-03-18] MEDS: Ibuprofen 800 MG Tab PO PRN (17:54)
[2018-03-18] MEDS: Zolpidem 5 MG Tab PO PRN (21:33)
[2018-03-18] MEDS: Acetaminophen 325 MG Tab PO PRN (21:33)
[2018-03-18] MEDS: Simethicone 80 MG Tab.Chew PO PRN (21:33)
[2018-03-19] MEDS: Prenatal Multivitamin with Calcium/Folic Acid/Iron Tab PO SCH (08:30)
[2018-03-19] MEDS: Docusate Sodium 100 MG Cap PO PRN (08:30)
[2018-03-19] MEDS: Acetaminophen 325 MG Tab PO PRN (08:30)
[2018-03-19 09:01] VITALS: BP 113/55
--- NOTE | 2018-03-19 10:19 | PN ---
DATE: 03/18/2018 day #1. SUBJECTIVE: The patient is tolerating p.o., ambulating, urinating, and passing flatus. Pain is under control. OBJECTIVE: Vital Signs: Temperature 98.4 , heart rate 72, blood pressure 106/65, respiratory rate 18. Lungs: Clear to auscultation bilaterally. Heart: S1 and S2. Regular rate and rhythm. Pelvis: Firm uterus -2 below umbilicus. Extremities: No peripheral edema. No calf pain. LABORATORY DATA: Labs today did reveal a white cell count of 7.6 come down from 18.2 predelivery, hemoglobin down to 10.3 with predelivery at 11.7, and platelets of 412. Her hyponatremia is resolved with a sodium of 135, minimally low potassium at 3.4 and calcium minimally low at 8.1. ASSESSMENT AND PLAN: day #1, status post spontaneous vaginal delivery precipitously at home. We will continue to follow clinically and closely. Possible discharge tomorrow. Discussed with the patient. She understands and agrees. We will follow her closely as well. [facility] /[id number]
--- NOTE | 2018-03-19 12:25 | DISCH ---
ADMITTING DIAGNOSES: 1. Intrauterine at 39 weeks by a 20 and 2/7-week ultrasound. 2. Precipitous spontaneous vaginal delivery at home, approximately 2:04 a.m. 3. Placental delivery in the emergency room. 4. Limited care. 5. Group B Streptococcus unknown. 6. Admitted methamphetamine and positive urine drug screen in the past with methamphetamine use approximately 2 hours prior to delivery. 7. Chlamydia, treated in 10/2017 and negative on 01/07/2018. 8. Trichomoniasis, positive on 01/07/2018, and 03/14/2018, and treated. 9. Hepatitis C antibody positive. 10.Prolonged third stage of labor, suspected. 11. 6, para 5-1-0-6. DISCHARGE DIAGNOSES: 1. Intrauterine at 39 weeks by a 20 and 2/7-week ultrasound. 2. Precipitous spontaneous vaginal delivery at home, approximately 2:04 a.m. 3. Placental delivery in the emergency room. 4. Limited care. 5. Group B Streptococcus unknown. 6. Admitted methamphetamine and positive urine drug screen in the past with methamphetamine use approximately 2 hours prior to delivery. 7. Chlamydia, treated in 10/2017 and negative on 01/07/2018. 8. Trichomoniasis, positive on 01/07/2018, and 03/14/2018, and treated. 9. Hepatitis C antibody positive. 10.Prolonged third stage of labor, suspected. 11. 6, para 5-1-0-6. 12.Anemia of versus acute blood loss, hemoglobin dropping down to 10.3. PROCEDURES PERFORMED: Delivery of placenta in the ER and evaluation and treatment in the ER for [address] Freeman. HISTORY OF PRESENT ILLNESS: Please see H and P. SUMMARY OF HOSPITAL COURSE: The patient was admitted on the above date with the above diagnoses. She delivered at home, presented to the ER via ambulance, was noted to be bleeding and having in and out of consciousness per ambulance crew. She was evaluated in the ER. Placenta was delivered. Minimal blood loss was noted at that time. The patient was asymptomatic and followed closely. She was subsequently admitted to the hospital. During her hospital stay, she was doing well. Please see progress notes for further details. DISCHARGE EVALUATION: The patient is tolerating p.o.'s, ambulating, urinating, passing flatus, and requesting discharge. The baby is being discharged to [employer] with her history of drug use as above. OBJECTIVE: Vital Signs: Temperature 98.4, heart rate 72, blood pressure 96/42, and respiratory rate is 18. Lungs: Clear to auscultation bilaterally. Heart: S1 and S2. Regular rate and rhythm. Abdomen: Firm uterus -1 below umbilicus. Extremities: No peripheral edema. No calf pain. LABORATORY DATA: White cell count 7.6, hemoglobin 10.3, and platelets 412 on 03/18/2018. She had initially a minimally low sodium at 131 upon admission and 135 on 03/18/2018, as well. Drug screen was positive for methamphetamines and amphetamines upon admission. CONDITION ON DISCHARGE COMPARED TO CONDITION ON ADMISSION: Improved. DISCHARGE INSTRUCTIONS: 1. Diet as tolerated. 2. Activity: No lifting more than 20 pounds. No sit-ups, straining, and pelvic rest for the next 6 weeks with immediate return to fertility discussed with the patient. 3. Reasons to return or go to the emergency room were discussed with the patient in detail including, but not limited to, temperature greater than 100.4, foul-smelling discharge, red hot tender breasts, or increased vaginal bleeding. DISCHARGE MEDICATIONS: 1. [id number] Tylenol or ibuprofen for pain. 2. vitamins with iron daily for 6 weeks. FOLLOWUP: Follow up in 6 weeks , and the patient wishes to follow up at [facility] in regard to this. I did discuss the importance of followup and ramifications of not doing so. She understands and agrees with the above treatment plan. [facility] /[id number]
== END 2018-03-19 10:15 | disposition home or self-care (01) | DRG 776 ==
LOC: DL.OBCHECK 03:24 → OBSVTOIN 03:25 → DL.OB 03:25
PROVIDERS: ADMIT Family Medicine; ATTEND Family Medicine
PROC: 10E0XZZ Delivery of Products of Conception, External Approach (ICD-10-PCS; principal; 2018-03-17)
PROC: 3E0234Z Introduction of Serum, Toxoid and Vaccine into Muscle, Percutaneous Approach (ICD-10-PCS; 2018-03-17)
DX: Z39.0 Encounter for care and examination of mother immediately after delivery (principal); O99.325 Drug use complicating the puerperium; D62 Acute posthemorrhagic anemia; O98.43 Viral hepatitis complicating the puerperium; E87.1 Hypo-osmolality and hyponatremia; Z23 Encounter for immunization; F15.90 Other stimulant use, unspecified, uncomplicated; O90.81 Anemia of the puerperium; A59.9 Trichomoniasis, unspecified; B19.20 Unspecified viral hepatitis C without hepatic coma; Z67.40 Type O blood, Rh positive; O90.89 Other complications of the puerperium, not elsewhere classified
CPT/HCPCS: 36415; 59414; 80048; 80305-QW; 85027; 86850; 86900; 86901; 90707; A9270-GY; J2590; J7120

== ENCOUNTER 2019-02-27 11:40 | Inpatient (IN) | payer MEDICAID ==
[2019-02-27] MEDS: Lactated Ringers 1,000 ML IV SCH ×3 (14:55→17:20)
[2019-02-27] MEDS ORDERED: Lactated Ringers 1,000 ML IV ONE (15:35)
[2019-02-27] MEDS ORDERED: Sodium Chloride 0.9% 10 ML Syringe FLUSH PRN ×2 (15:35→20:51)
[2019-02-27] MEDS ORDERED: Methylergonovine 0.2 MG/1 ML Amp IM PRN (15:35)
[2019-02-27] MEDS ORDERED: Misoprostol 400 MCG (4 X 100 MCG TAB) RECTAL PRN (15:35)
[2019-02-27] MEDS ORDERED: Lidocaine 1% 30 ML SDV INJECT PRN (15:35)
[2019-02-27] MEDS ORDERED: Carboprost Tromethamine 250 MCG/1 ML Amp IM PRN (15:35)
[2019-02-27] MEDS ORDERED: Tranexamic Acid 1,000 MG in Sodium Chloride 0.9% 100 ML IV PRN (15:35)
[2019-02-27] MEDS ORDERED: Ondansetron 4 MG/2 ML SDV IV PRN (15:35)
[2019-02-27] MEDS ORDERED: Oxytocin/Normal Saline 30 UNIT/500 ML BAG IV SCH ×2 (15:45→16:55)
--- NOTE | 2019-02-27 16:25 | PCM.SN ---
- Free Text/Narrative Note: Intrathecal. Sitting position, sterile prep and drape. 1% lidocaine w bicarb for skinwheal to L2 L3 interspace. Introducer, 24 ga pencan x 2. Pos CSF, neg heme, neg parasthesia. 15 mcg pf sufenta, 35 mcg pf fentanyl, 0.4 ml pf ns and 6 mg of 0.75% pf bupivacaine injected after CSF aspiration. Pt to L lateral position. procedure time 1555 to 1625
[2019-02-27] MEDS ORDERED: ePHEDrine 50 MG/ML SDV ONE (17:16)
[2019-02-27] MEDS: ePHEDrine 50 MG/ML SDV IVPUSH PRN ×3 (17:25→17:36)
[2019-02-27] MEDS ORDERED: Zolpidem 5 MG Tab PO PRN (20:51)
[2019-02-27] MEDS ORDERED: Simethicone 80 MG Tab.Chew PO PRN (20:51)
[2019-02-27] MEDS ORDERED: Oxytocin 10 Units/1 ML SDV IM PRN (20:51)
[2019-02-27] MEDS ORDERED: Benzocaine/Menthol 20%-0.5% Spray 56 GM Canister TOP PRN (20:51)
[2019-02-28] MEDS: Ibuprofen 800 MG Tab PO PRN ×3 (07:07→22:40)
[2019-02-28] MEDS: Prenatal Multivitamin with Calcium/Folic Acid/Iron Tab PO SCH (09:33)
[2019-02-28] MEDS: Docusate Sodium 100 MG Cap PO PRN ×2 (09:33→20:52)
--- NOTE | 2019-02-28 15:24 | PCM.SN ---
- Free Text/Narrative Note: DOS: 02-28-2019 PPD #1 Kiya is a 28yo NA G7 now P7 who delivered a viable male infant last night by augmented vaginal delivery @ 2040 on 02-27-19 with APGARs of 7 & 9, weight of 3025g/6lb 11oz without complication. See admit and delivery notes of Dr. Freeman for details. Bottle feeding. Denies excessive Lochia flow. minimal cramping. She is eating, voiding and ambulating without difficulty. Afebrile with stable vital signs. fundus remains firm. staff has no concerns. O+, GBS negative, Rubella immune Continue routine PP cares and orders. Likely home tomorrow. All questions answered for Patient and SO Solomon. Reviewed exam with the parents today. emma
[2019-02-28] MEDS: Acetaminophen 325 MG Tab PO PRN ×2 (16:39→20:52)
[2019-03-01] MEDS: Acetaminophen 325 MG Tab PO PRN (04:34)
[2019-03-01] MEDS: Ibuprofen 800 MG Tab PO PRN (08:20)
[2019-03-01] MEDS: Prenatal Multivitamin with Calcium/Folic Acid/Iron Tab PO SCH (08:20)
[2019-03-01] MEDS: Docusate Sodium 100 MG Cap PO PRN (08:20)
[2019-03-01 08:45] VITALS: BP 101/51; PULSE 69
--- NOTE | 2019-03-01 10:12 | PCM.DCSUM1 ---
Discharge Summary - Hospital Course Free Text/Narrative:: Kiya is 28yo NA G7 now P7 (5296) Diagnosis: Stroke: No - Discharge Data Discharge Date: 03/01/19 (DISCHARGE DATE) Discharge Disposition: Home, Self-Care 01 Condition: Good - Referral to Home Health Primary Care Physician: Elton Freeman MD - Patient Instructions Diet: Usual Diet as Tolerated - Discharge Plan *PRESCRIPTION DRUG MONITORING PROGRAM REVIEWED*: Not Applicable *COPY OF PRESCRIPTION DRUG MONITORING REPORT IN PATIENT KYLE: Not Applicable Home Medications: Home Meds Ferrous Sulfate 1 tab PO DAILY 03/14/18 [History] Pnv No.95/Ferrous Fum/Folic AC [Prenavite Tablet] 1 each PO DAILY 03/14/18 [ History] Patient Handouts: Baby Blues, Home Care Instructions for Mom, Care After Vaginal Delivery - Discharge Summary/Plan Comment DC Time >30 min.: No Discharge Summary/Plan Comment: follow up with Dr. Freeman for 6 week check and sooner prn. - Patient Data Vitals - Most Recent: Last Vital Signs Temp 97.9 F 03/01/19 08:00 Pulse 69 03/01/19 08:00 Resp 16 03/01/19 08:00 BP 101/51 L 03/01/19 08:00 Pulse Ox 98 02/28/19 19:49 Weight - Most Recent: 194 lb Med Orders - Current: Current Medications Acetaminophen (Tylenol) 650 mg PO Q4H PRN PRN Reason: Pain (Mild 1-3) and fever Last Admin: 03/01/19 04:34 Dose: 650 mg Benzocaine/Menthol (Dermoplast Pain Relief [place]) 0 gm TOP Q4H PRN PRN Reason: Perineal comfort measures Carboprost Tromethamine (Hemabate Ds) 250 mcg IM ASDIRECTED PRN PRN Reason: HEMORRHAGE Docusate Sodium (Colace) 100 mg PO BID PRN PRN Reason: Constipation Last Admin: 03/01/19 08:20 Dose: 100 mg Ephedrine Sulfate (Ephedrine Sulfate) 10 mg IVPUSH ONETIME PRN PRN Reason: Hypotension Last Admin: 02/27/19 17:36 Dose: 10 mg Tranexamic Acid 1,000 mg/ (Sodium Chloride) 110 mls @ 660 mls/hr IV ONETIME PRN PRN Reason: Bleeding Lactated Ringer's (Ringers, Lactated) 1,000 mls @ 125 mls/hr IV ASDIRECTED DIVYA Last Admin: 02/27/19 17:20 Dose: 125 mls/hr Oxytocin/Sodium Chloride (Pitocin In Ns 30 Unit/500 Ml) 30 unit in 500 mls @ 2 mls/hr IV TITRATE DIVYA; Protocol Oxytocin/Sodium Chloride (Pitocin In Ns 30 Unit/500 Ml) 30 unit in 500 mls @ 2 mls/hr IV TITRATE DIVYA; Protocol Last Titration: 02/28/19 00:10 Dose: Infused Ibuprofen (Motrin) 800 mg PO Q8H PRN PRN Reason: Mild Pain or Fever Last Admin: 03/01/19 08:20 Dose: 800 mg Lidocaine HCl (Xylocaine-Mpf 1%) 30 ml INJECT ASDIRECTED PRN PRN Reason: Perineal Repair Methylergonovine Maleate (Methergine) 0.2 mg IM ASDIRECTED PRN PRN Reason: Hemorrhage Misoprostol (Cytotec) 800 mcg RECTAL ASDIRECTED PRN PRN Reason: Hemorrhage Ondansetron HCl (Zofran) 4 mg IV Q4H PRN PRN Reason: Nausea/Vomiting Last Admin: 02/27/19 16:00 Dose: 4 mg Oxytocin (Pitocin) 10 unit IM ONETIME PRN PRN Reason: Bleeding Prenat Multivit/[place]/Iron/Folic Ac ( Plus Iron) 1 each PO DAILY [facility] Last Admin: 03/01/19 08:20 Dose: 1 each Simethicone (Simethicone) 80 mg PO Q4H PRN PRN Reason: Gas Sodium Chloride (Saline Flush) 10 ml FLUSH ASDIRECTED PRN PRN Reason: Keep Vein Open Last Admin: 02/27/19 17:29 Dose: 10 ml Sodium Chloride (Saline Flush) 10 ml FLUSH ASDIRECTED PRN PRN Reason: Keep Vein Open Zolpidem Tartrate (Ambien) 5 mg PO BEDTIME PRN PRN Reason: Insomnia Discontinued Medications Ephedrine Sulfate (Ephedrine Sulfate) Confirm Administered Dose 50 mg .ROUTE .STPreen.Me-MED ONE Stop: 02/27/19 17:17 Last Admin: 02/27/19 19:32 Dose: Not Given Lactated Ringer's (Ringers, Lactated) 1,000 mls @ 500 mls/hr IV BOLUS ONE Stop: 02/27/19 17:34 Last Admin: 02/28/19 02:02 Dose: Not Given
[2019-03-01] MEDS ORDERED: Sodium Bicarbonate 4.2% 2.5 MEQ/5 ML SDV ONE (11:29)
[2019-03-01] MEDS ORDERED: fentaNYL 100 MCG/2 ML SDV ITHECAL ONE (11:29)
--- NOTE | 2019-03-02 11:13 | HP ---
PATIENT IDENTIFICATION: Kiya Linda is a 28-year-old, G7, P5-1-0-6, intrauterine at 37 weeks by 16-4/7-week ultrasound, who presents with contractions. HISTORY OF PRESENT ILLNESS: The patient states contractions started last night after initial evaluation done in the clinic yesterday. Associated with this was some bloody show, worsening this morning, as well as her contractions worsening, felt in the lower abdomen and increasing in frequency and intensity to the point that she is breathing through them after serial evaluations since 11:48 this morning with it being currently 1540 hours. She was followed closely, noted continued to have bloody show as well as cervical change from 3 to 4 cm to 5+ cm, 65% effaced -1 to -2 station, vertex suspected. Because of this as well as her history of precipitous labors in delivery including 1 delivered at home, she was admitted to the hospital. Records were called for, reviewed as below, and supplemented by the patient's history. ANTEPARTUM LABORATORIES: ABO blood type, O positive, negative antibody. Rubella immune. RPR nonreactive. Negative hepatitis B surface antigen. Hep C highly positive. Negative HIV. GC, positive chlamydia that was treated and negative with retesting on 02/13/2019 with negative gonorrhea as well at the same time. GBS was negative on 02/13/2019. One-hour GTT was 97. Her urine drug screen was negative through [facility]. ALLERGIES: Listed as Keflex, erythromycin, penicillins, and Pediazole. MEDICATIONS: vitamins and supposed to be on iron. PAST MEDICAL/PAST SURGICAL HISTORY: Remarkable for abnormal Pap smears in the past with positive HPV, migraine headaches in the past, history of vaginal deliveries as below, and maternal anemia in . Negative surgical history. FAMILY HISTORY: Mother had a ruptured aneurysm, diabetes in father, hypertension in father as well as thyroid disease in mother. Negative family history of cancer, defects, anesthesia problems, or bleeding problems. SOCIAL HISTORY: Living at in-laws in [facility]. Father of baby, Solomon Ordaz, is involved and lives there as well, 2 house dogs. Did smoke in the past. No alcohol use. No drug use elicited. Urine drug screen negative earlier in the and pending upon admission. OB HISTORY: All were delivered via spontaneous vaginal delivery, 1 was . 1. 03/17/2018, delivered at 39 weeks, term spontaneous vaginal delivery. 2. 09/07/2016, 35-4/7-week , 4 hours of labor, spontaneous vaginal delivery yielding a male, 6 pounds 8.4 ounces. 3. 10/14/2013, 37-2/7 weeks, male, 6 pounds 6 ounces. Spontaneous vaginal delivery with dysfunctional labor. 4. 04/20/2012, 40 weeks' term, female, 7 pounds 9 ounces, delivered via spontaneous vaginal delivery. 5. 06/07/2011, 38-3/7 weeks, term spontaneous vaginal delivery yielding a male, 8 pounds 9 ounces. 6. 06/12/2009, 37 weeks, term spontaneous vaginal delivery, female, 7 pounds 4 ounces. REVIEW OF SYSTEMS: Otherwise reviewed and felt to be noncontributory. OBJECTIVE: Vital Signs: Blood pressure 122/64, heart rate 99, temperature 98.4. Appearance: Serially evaluated and most latest appearance, she has been breathing through contractions, but answering questions appropriately in between. HEENT: Head atraumatic. EOMs intact. PERRLA. No scleral icterus. No obvious otorhinorrhea. Mucous membranes moist. Neck: No obvious tenderness. Lungs: Clear to auscultation bilaterally. No increased work of breathing. Heart: S1, S2. Regular rate and rhythm. Abdomen: Gravid. Bryce's indeterminate. Nontender and nondistended. Bowel sounds positive. No organomegaly, pulsatile masses, or obvious hernias. No rebound, rigidity, or guarding. Monitors applied. : Normal external female genitalia. Normal position and presentation of urethra. Vaginal exam initially was 3 to 4 cm, 65% effaced, -1 station, vertex suspected and approximately 2 to 3 hours afterward, she was 5+ cm with contractions increasing in frequency and intensity as well as being 65% effaced, -1 to -2 station, and at approximately 1540 hours, she was the same dilation and artificial rupture of membranes was done yielding copious amounts of clear fluid. She did have some minor bloody show as well. heart tones in the 150s and felt to be reactive and reassuring. Tocometer revealed contractions every 1-1/2 to 2 to 3 minutes apart. INVESTIGATIONS: White cell count 13.1, hemoglobin 11.6, platelets 419. ASSESSMENT: 1. Intrauterine at 37 weeks by 16-4/7-week ultrasound. 2. Active labor as evidenced by contractions and cervical global director air and climate change serial evaluation. 3. History of precipitous labor and delivery with delivery at home in the past. 4. Chlamydia in the , treated, negative on 02/13/2019. 5. Group B Streptococcus negative. 6. Hepatitis C antibody highly positive. 7. G7, P5-1-0-6. PLAN: The patient will be admitted. Artificial rupture of membranes has been done and then we will place intrathecal at the patient's request. We will continue to follow clinically and closely. The patient understands and agrees with the above treatment plan. [facility] /[id number]
--- NOTE | 2019-03-02 12:10 | DEL ---
DATE: 02/27/2019 PREOPERATIVE DIAGNOSES: 1. Intrauterine at 37 weeks by 16 and 4/7-week ultrasound. 2. Active labor upon admission. 3. History of precipitous labor and delivery. 4. Chlamydia in , treated, negative on 02/13/2019. 5. Group B Streptococcus negative. 6. Hepatitis C highly positive antibody status. 7. G7, P5-1-0-6. POSTOPERATIVE DIAGNOSES: 1. Intrauterine at 37 weeks by 16 and 4/7-week ultrasound. 2. Active labor upon admission. 3. History of precipitous labor and delivery. 4. Chlamydia in , treated, negative on 02/13/2019. 5. Group B Streptococcus negative. 6. Hepatitis C highly positive antibody status. 7. G7, P5-1-0-6. 8. Cord wrapped around right hand. 9. Right occiput anterior presentation. PROCEDURES PERFORMED: NST followed by artificial rupture of membranes, Pitocin augmentation and then subsequent spontaneous vaginal delivery per Dr. Freeman on 02/27/2019. ANESTHESIA/ANALGESIA: The patient did receive an intrathecal in the first stage of labor. ESTIMATED BLOOD LOSS: 400 mL. FINDINGS: Male. score and weight pending. SUMMARY OF EVENTS: The patient is a 28-year-old, G7, P5-1-0-6 intrauterine at 37 weeks by 16 and 4/7-week ultrasound, who was followed on the OB floor, had cervical change with contractions increasing in frequency and intensity and subsequently admitted in active labor. Underwent artificial rupture of membranes and then subsequent intrathecal contractions slowed down thereafter. Pitocin augmentation was started. Evaluations during this time period per nurse revealed ballotable unsure presentation, therefore an ultrasound was called for at that time with vertex being noted prior. Subsequently, ultrasound did reveal vertex presentation and catheterization of bladder then occurred and drained 600 mL of urine and vertex then could be felt at 0 station thereafter. Subsequently, the patient was followed closely. She was found to be 8+ cm. I was called to the room, and upon my presentation in the room, I donned sterile gown and gloves. She was found to be complete. She started pushing with contractions and vertex was delivered in EUGENIA presentation followed by anterior and posterior shoulder as well as the rest of the infant without difficulty with cord wrapped around the right hand. Mouth and nares were suctioned, cord doubly clamped and cut and the was resuscitated on mother's abdomen. Approximately 10 mL of cord blood was obtained for labs. Placenta was then delivered with gentle cord traction and fundal massage. There were some issues with starting Pitocin. This was subsequently started per protocol. Shortly thereafter, aggressive fundal massage ensued to ensure that atony did not develop. EBL was 400 mL and bleeding slowed thereafter, once Pitocin was started, and massage continued. Perineum, vagina and perirectal areas were examined without any tears or lacerations. Mother and are currently stable at the time of dictation. [facility] /[id number]
--- NOTE | 2019-03-02 12:10 | OBOUT ---
DATE: 02/27/2019 TIME: 11:52 to 12:12. REASON FOR NST: 1. Intrauterine at 37 weeks by 16- and 4/7-week ultrasound. 2. Active labor upon admission. 3. History of precipitous labor and delivery. 4. Chlamydia in the , treated, negative on 02/13/2019. 5. Group B Streptococcus negative. 6. Highly positive hepatitis C antibody positive. 7. G7, P5-1-0-6. NST INTERPRETATION: During this time period, heart tone baseline is approximately 145 and there are at least two 15 x 15 beats per minute accelerations making this strip reactive. It is also noted to be reassuring. Tocometer reveals some irritability, possibility of 2 contractions, minimally felt by the patient. Blood pressure 122/64, heart rate 99, temperature 98.4. ASSESSMENT: 1. Nonstress test, reactive and reassuring. 2. Tocometer with Contractions. PLAN: Please see admit history and physical for further details. We will continue to follow clinically and closely. [facility] /[id number]
== END 2019-03-01 11:30 | disposition home or self-care (01) | DRG 807 ==
LOC: DL.OBCHECK 11:40 → DL.OB 15:35
PROVIDERS: ADMIT Family Medicine; ATTEND Family Medicine
PROC: 10E0XZZ Delivery of Products of Conception, External Approach (ICD-10-PCS; principal; 2019-02-27)
PROC: 10907ZC Drainage of Amniotic Fluid, Therapeutic from Products of Conception, Via Natural or Artificial Opening (ICD-10-PCS; 2019-02-27)
PROC: 4A0HXCZ Measurement of Products of Conception, Cardiac Rate, External Approach (ICD-10-PCS; 2019-02-27)
DX: O98.42 Viral hepatitis complicating childbirth (principal); Z37.0 Single live birth; Z3A.37 37 weeks gestation of pregnancy; Z88.0 Allergy status to penicillin; Z88.1 Allergy status to other antibiotic agents; Z88.8 Allergy status to other drugs, medicaments and biological substances; Z79.899 Other long term (current) drug therapy; Z87.891 Personal history of nicotine dependence
CPT/HCPCS: 36415; 51701; 59409; 76815; 80305-QW; 85027; A9270-GY; J2405; J2590; J3010; J7120

== ENCOUNTER 2022-08-24 09:48 | Inpatient (IN) | payer MEDICAID ==
[2022-08-24] MEDS ORDERED: Misoprostol 400 MCG (4 X 100 MCG TAB) RECTAL PRN ×2 (10:39→18:52)
[2022-08-24] MEDS ORDERED: Methylergonovine 0.2 MG/1 ML Amp IM PRN (10:39)
[2022-08-24] MEDS ORDERED: Carboprost Tromethamine 250 MCG/1 ML Amp IM PRN ×2 (10:39→18:52)
[2022-08-24] MEDS ORDERED: Tranexamic Acid 1,000 MG in Sodium Chloride 0.9% 100 ML IV PRN ×2 (10:39→18:52)
[2022-08-24] MEDS ORDERED: Sodium Chloride 0.9% 10 ML Syringe FLUSH PRN ×2 (10:39→18:52)
[2022-08-24] MEDS ORDERED: Acetaminophen 325 MG Tab PO PRN ×2 (10:39→18:52)
[2022-08-24] MEDS ORDERED: Lidocaine 1% 30 ML SDV INJECT PRN (10:39)
[2022-08-24] MEDS ORDERED: Ondansetron 4 MG/2 ML SDV IVPUSH PRN (10:39)
[2022-08-24] MEDS ORDERED: Oxytocin/Normal Saline 30 UNIT/500 ML BAG IV SCH (10:45)
[2022-08-24 11:17] LABS: HEMATOCRIT 33.9 % (37.0-47.0); HEMOGLOBIN 10.9 g/dL (12.0-16.0); MEAN CORPUSCULAR HGB CONC 32.2 g/dL (33.0-35.0); MEAN CORPUSCULAR VOLUME 80.9 fL (80-100); RED BLOOD CELL COUNT 4.19 10^6/uL (4.2-5.4); WHITE BLOOD CELL COUNT,WBC 7.1 10^3/uL (5.0-10.0)
[2022-08-24] MEDS ORDERED: Lactated Ringers 1,000 ML IV ONE (11:30)
[2022-08-24] MEDS: Lactated Ringers 1,000 ML IV SCH ×2 (11:40→14:41)
[2022-08-24] MEDS ORDERED: Vancomycin 2 GM in Sodium Chloride 0.9% 500 ML IV ONE (12:00)
[2022-08-24] MEDS ORDERED: Bupivacaine 0.25% 10 ML SDV ONE (14:29)
[2022-08-24] MEDS ORDERED: fentaNYL 100 MCG/2 ML SDV ONE (14:29)
[2022-08-24] MEDS ORDERED: Phenylephrine HCl In 0.9% NaCl 1 MG/10 ML Syringe IVPUSH PRN (14:49)
[2022-08-24] MEDS ORDERED: ePHEDrine 50 MG/ML SDV IVPUSH PRN (14:49)
[2022-08-24] MEDS ORDERED: Ropivacaine 200 MG in Premix Bag 1 BAG EPIDUR SCH (15:00)
[2022-08-24 16:17] LABS: AMPHETAMINES,URINE NEGATIVE (NEGATIVE); BARBITURATES,URINE NEGATIVE (NEGATIVE); BENZODIAZEPINE,URINE NEGATIVE (NEGATIVE); MDMA (ECSTASY), URINE NEGATIVE (NEGATIVE); METHADONE,URINE NEGATIVE (NEGATIVE); METHAMPHETAMINES,URINE POSITIVE (NEGATIVE); OPIATES,URINE NEGATIVE (NEGATIVE); OXYCODONE,URINE NEGATIVE (NEGATIVE); PHENCYCLIDINE,URINE NEGATIVE (NEGATIVE); TCA,URINE NEGATIVE (NEGATIVE)
[2022-08-24] MEDS ORDERED: Simethicone 80 MG Tab.Chew PO PRN (18:52)
[2022-08-24] MEDS ORDERED: Witch Hazel Medicated Pads 100/Jar TOP PRN (18:52)
[2022-08-24] MEDS ORDERED: Benzocaine/Menthol 20%-0.5% Spray 78 GM Cannister TOP PRN (18:52)
[2022-08-25 06:17] LABS: HEMATOCRIT 31.1 % (37.0-47.0); HEMOGLOBIN 10.1 g/dL (12.0-16.0); MEAN CORPUSCULAR HEMOGLOBIN 26.2 pg (27.0-34.0); MEAN CORPUSCULAR HGB CONC 32.5 g/dL (33.0-35.0); MEAN CORPUSCULAR VOLUME 80.8 fL (80-100); RED BLOOD CELL COUNT 3.85 10^6/uL (4.2-5.4); WHITE BLOOD CELL COUNT,WBC 12.2 10^3/uL (5.0-10.0)
[2022-08-25] MEDS: Ibuprofen 800 MG Tab PO PRN ×2 (10:23→18:09)
[2022-08-25] MEDS: Prenatal Multivitamin with Calcium/Folic Acid/Iron Tab PO SCH (10:23)
[2022-08-25] MEDS: Docusate Sodium 100 MG Cap PO PRN ×2 (10:24→21:34)
[2022-08-25] MEDS: Ferrous Sulfate 325 MG Tab PO SCH (10:24)
[2022-08-26] MEDS: Prenatal Multivitamin with Calcium/Folic Acid/Iron Tab PO SCH (08:25)
[2022-08-26] MEDS: Ferrous Sulfate 325 MG Tab PO SCH (08:25)
[2022-08-26] MEDS: Docusate Sodium 100 MG Cap PO PRN (08:25)
[2022-08-26] MEDS: Ibuprofen 800 MG Tab PO PRN (08:26)
[2022-08-26 14:21] VITALS: BP 129/58; PULSE 78
== END 2022-08-26 14:45 | disposition home or self-care (01) | DRG 806 ==
LOC: DL.OBCHECK 09:48 → DL.OB 09:54
PROVIDERS: ADMIT Family Medicine; ATTEND Family Medicine
PROC: 10E0XZZ Delivery of Products of Conception, External Approach (ICD-10-PCS; principal; 2022-08-24)
PROC: 3E0R3BZ Introduction of Anesthetic Agent into Spinal Canal, Percutaneous Approach (ICD-10-PCS; 2022-08-24)
PROC: 00HU33Z Insertion of Infusion Device into Spinal Canal, Percutaneous Approach (ICD-10-PCS; 2022-08-24)
DX: O99.824 Streptococcus B carrier state complicating childbirth (principal); O98.42 Viral hepatitis complicating childbirth; Z37.0 Single live birth; R82.71 Bacteriuria; O99.02 Anemia complicating childbirth; O42.02 Full-term premature rupture of membranes, onset of labor within 24 hours of rupture; O99.324 Drug use complicating childbirth; F15.90 Other stimulant use, unspecified, uncomplicated; B19.20 Unspecified viral hepatitis C without hepatic coma; Z88.0 Allergy status to penicillin; Z88.1 Allergy status to other antibiotic agents; Z88.2 Allergy status to sulfonamides; Z87.891 Personal history of nicotine dependence; Z3A.37 37 weeks gestation of pregnancy
CPT/HCPCS: 01967; 36415; 51702; 59409; 80305-QW; 84112; 85027; 86592; 86803; 86850; 86900; 86901; A9270-GY; J2590; J2795; J3370; J7040; J7120

== ENCOUNTER 2023-07-23 19:44 | Emergency (ER) | payer MEDICAID ==
[2023-07-23 20:04] LABS: BASOPHILS PERCENT AUTO 0.2 % (0.0-1.0); EOSINOPHILS PERCENT AUTO 0.9 % (1.0-3.0); HEMATOCRIT 29.8 % (37.0-47.0); HEMOGLOBIN 9.7 g/dL (12.0-16.0); LYMPHOCYTES PERCENT AUTO 20.1 % (20.5-50.1); MEAN CORPUSCULAR HEMOGLOBIN 28.2 pg (27.0-34.0); MEAN CORPUSCULAR HGB CONC 32.6 g/dL (33.0-35.0); MEAN CORPUSCULAR VOLUME 86.6 fL (80-100); MONOCYTES PERCENT AUTO 5.1 % (2-8); NEUTROPHILS PERCENT AUTO 73.7 % (42.2-75.2); PLATELET COUNT,PLT 402 10^3/uL (150-450); RED BLOOD CELL COUNT 3.44 10^6/uL (4.2-5.4); WHITE BLOOD CELL COUNT,WBC 12.1 10^3/uL (5.0-10.0)
[2023-07-23] MEDS: fentaNYL 100 MCG/2 ML SDV IVPUSH ONE (20:06)
[2023-07-23] MEDS: Sodium Chloride 0.9% 1,000 ML IV ONE ×3 (20:07→21:17)
[2023-07-23 20:22] LABS: ALANINE AMINOTRANSFERASE,ALT 39 U/L (14-59); ALBUMIN 2.9 g/dL (3.4-5.0); ALKALINE PHOSPHATASE 75 U/L (46-116); ANION GAP 12.1 mEq/L (7-13); ASPARTATE AMNIOTRANSFERASE,AST 33 U/L (15-37); BILIRUBIN TOTAL 0.6 mg/dL (0.2-1.0); BLOOD UREA NITROGEN,BUN 7 mg/dL (7-18); BUN/CREATININE RATIO 8.4 (No establ ref range); CARBON DIOXIDE,CO2 25 mmol/L (21-32); CHLORIDE,CL 105 mmol/L (98-107); CREATININE 0.83 mg/dL (0.55-1.02); GLUCOSE RANDOM 141 mg/dL (70-99); LIPASE 14 U/L (16-77); MAGNESIUM 1.9 mg/dL (1.8-2.4); POTASSIUM,K 3.1 mmol/L (3.5-5.1); PROTEIN TOTAL,TP 6.5 g/dL (6.4-8.2); SODIUM,NA 139 mmol/L (136-145)
[2023-07-23 20:23] LABS: LACTIC ACID 1.9 mmol/L (0.4-2.0)
[2023-07-23 20:26] LABS: A/G RATIO 0.81; ESTIMATED GFR 97 mL/min (>=60)
[2023-07-23 21:24] VITALS: BP 93/57; PULSE 90
[2023-07-23] MEDS ORDERED: Calcium Chloride 10% 1 GM/10 ML Syringe ONE (22:04)
== END 2023-07-23 22:07 ==
LOC: DL.ED 19:44
DX: O00.90 Unspecified ectopic pregnancy without intrauterine pregnancy (principal); I95.9 Hypotension, unspecified; Z88.0 Allergy status to penicillin; Z88.1 Allergy status to other antibiotic agents; Z88.8 Allergy status to other drugs, medicaments and biological substances
CPT/HCPCS: 36415; 36430; 76817; 80053; 83605; 83690; 83735; 84484; 84702; 85025; 86850; 86900; 86901; 86920; 86922; 96361; 96374; 99285; 99285-25; J3010; J7030; P9016